=== PATIENT | female | born 1940 | race Caucasian/White ===

== ENCOUNTER 2022-12-20 06:18 | Observation (INO) | payer MEDICARE, OTHER ==
[2022-12-14 14:57] LABS: BASOPHILS % (AUTO) 0.5 % (0-1); EOSINOPHILS # (AUTO) 0.3 X10'3 (0-0.9); EOSINOPHILS % (AUTO) 3.8 % (0-6); LYMPHOCYTES # (AUTO) 2.4 X10'3 (1.1-4.8); LYMPHOCYTES % (AUTO) 28.8 % (21-51); MEAN CORPUSCULAR HGB CONC 32.7 g/dL (33.0-36.5); MEAN CORPUSCULAR VOLUME 91.9 FL (78-98); MEAN PLATELET VOLUME 8.3 FL (7.4-10.4); MONOCYTES # (AUTO) 0.7 X10'3 (0-0.9); MONOCYTES % (AUTO) 8.4 % (2-12); NEUTROPHILS # (AUTO) 4.9 X10'3 (1.8-7.7); NEUTROPHILS % (AUTO) 58.5 % (42-75); PRE OP HEMOGLOBIN 14.4 g/dL (12.0-16.0); PRE OP PLATELET COUNT 274 X10'3 (140-440); RED BLOOD COUNT 4.79 X10'6 (4.20-5.60)
[2022-12-14 15:11] LABS: ALBUMIN 4.1 G/DL (3.4-5.0); ALBUMIN/GLOBULIN RATIO 1.4 (1.1-1.5); ALKALINE PHOSPHATASE 59 IU/L (46-116); BLOOD UREA NITROGEN 28 MG/DL (7-18); BUN/CREATININE RATIO 31.1 (10.0-20.0); CALCIUM 9.7 MG/DL (8.5-10.1); CHLORIDE 105 MMOL/L (99-107); PRE OP ALT 24 U/L (30-65); PRE OP ANION GAP 6 (8-16); PRE OP AST 24 U/L (10-37); PRE OP BILIRUB, TOTAL 0.3 MG/DL (0.0-1.0); PRE OP GLUCOSE 100 MG/DL (70-104); PRE OP SODIUM 141 MMOL/L (135-145); TOTAL CARBON DIOXIDE 29.6 MMOL/L (24-32); eGFR 60 ML/MIN
[2022-12-14 15:14] LABS: PRE OP POTASSIUM 4.8 MMOL/L (3.4-5.1)
[~2022-12-20] VITALS: Ht 153.7 cm; Wt 70.8 kg
[2022-12-20] VITALS (31 sets, daily range): BP systolic 95–187; BP diastolic 53–95
[~2022-12-20 06:18] MED LIST: ASCO-139 PO; ASPI-500 PO; CALC600T61 PO; CAND16TA29 PO; CHOL50004 PO; EMPA10TA PO; FENO160T30 PO; INDOCYANINE GREEN 25 MG/10 ML VIAL IV ONE; LACT1CAP65 PO; MAGN400C PO; METH4TAB81 PO; MULT-1085 PO; PANT40TA54 PO; ZINC50TA60 PO; clindamycin-Cleocin 900mg/D5W 50 ML IV ONE; famotidine 20mg tablet PO ONE; gentamicin inj 280 MG in normal saline 100ml IV soln 93 ML IV ONE; ringers solution, lacted 1,000 ML IV SCH
[2022-12-20] MEDS ORDERED: BUPIVAcaine/PF 2.5 mg/ml (0.25%) 30ml vial ONE ×2 (06:35→10:00)
[2022-12-20] MEDS ORDERED: sugammadex 200mg/2ml injection IV ONE (08:00)
[2022-12-20] MEDS ORDERED: desflurane 240ml liquid inh. IH ONE (08:00)
[2022-12-20] MEDS ORDERED: ondansetron/PF 4mg/2ml inj ONE (08:00)
[2022-12-20] MEDS ORDERED: LIDOcaine 1% (10mg/ml) 2ml vial ONE (08:18)
[2022-12-20] MEDS ORDERED: fentaNYL/PF 50MCG/1 ML 2ML syringe ONE (08:32)
[2022-12-20] MEDS ORDERED: midazolam 1 mg/ML 2ml injection ONE (08:32)
[2022-12-20] MEDS ORDERED: glycopyrrolate 0.2mg/ml inj ONE (08:33)
[2022-12-20] MEDS ORDERED: LIDOcaine 2% (20mg/ml) 5ml vial ONE (08:33)
[2022-12-20] MEDS ORDERED: dexamethasone sod phosphate 4mg/ml inj. ONE (08:33)
[2022-12-20] MEDS ORDERED: rocuronium 10mg/ml inj IV ONE (08:33)
[2022-12-20] MEDS ORDERED: propofol inj 20 ML IV ONE (08:33)
[2022-12-20] MEDS ORDERED: neostigmine methylsulfate 1 MG/ML 10ml vial ONE (08:33)
[2022-12-20] MEDS ORDERED: hydrALAZINE 20mg/ml inj. IV PRN (09:05)
[2022-12-20] MEDS ORDERED: ringers solution, lacted 1,000 ML IV SCH (09:05)
[2022-12-20] MEDS ORDERED: morphine 4 MG/ML inj SYRINge IV PRN (09:05)
[2022-12-20] MEDS ORDERED: ondansetron/PF 4mg/2ml inj IV PRN (09:05)
[2022-12-20] MEDS ORDERED: morphine 2 MG/ML inj. syringe IV PRN (09:05)
[2022-12-20] MEDS ORDERED: labetalol 20mg/4ml (5mg/ml) syringe IV PRN (09:05)
[2022-12-20] MEDS ORDERED: fentaNYL/PF 50MCG/1 ML 2ML syringe IV PRN ×2 (09:05)
[2022-12-20] MEDS ORDERED: ePHEDrine 50MG/ML INJ. ONE (09:35)
[2022-12-20] MEDS ORDERED: labetalol 20mg/4ml (5mg/ml) syringe IV ONE (10:10)
[2022-12-20] MEDS ORDERED: naloxone 0.4 mg/ml inj IV PRN (10:15)
--- NOTE | 2022-12-20 10:20 | NUR ---
Received from OR via [facility] IN STABLE CONDITION , accompanied by Anesthesiologist and HARVEST SUPERVISOR report given by HARVEST SUPERVISOR AND Anesthesiolgist. Addendum: 12/20/22 at 1047 by Susanne Mcdonough RN Amended: Links added.
[2022-12-20] MEDS ORDERED: acetaminophen 1,000mg/100ml IV 100 ML IV STA (12:44)
[2022-12-20] MEDS: HYDROmorphone inj. 0.5 MG/0.5 ML DISP.SYRIN IV PRN ×2 (12:53→21:22)
[2022-12-20] MEDS: oxyCODONE/APAP 5-325mg tablet PO PRN ×2 (12:54→18:40)
--- NOTE | 2022-12-20 14:08 | NUR ---
PATIENT DISCHARGED FROM PACU IN STBLE CONDITION AFTER REPORT GIVEN TO RN TAKING OVER PATIENTS CARE. PATIENT TRANSFERRED TO ROOM 4012B VIA [facility] LASSITER RN. Addendum: 12/20/22 at 1410 by Susanne Mcdonough RN Amended: Links added.
[2022-12-20] MEDS: potassium CL 20mEq in D5-1/2NS 1,000 ML IV SCH ×2 (15:33→18:15)
[2022-12-20] MEDS: clindamycin 600mg/D5W 50ml 50 ML IV SCH (17:01)
--- NOTE | 2022-12-20 19:55 | NUR ---
found order for [address] on patient. pt up with aide to walk, fww, attends b/c incont urine when first stood up.
[2022-12-20] MEDS ORDERED: pantoprazole 40mg Tablet.DR PO SCH (21:06)
[2022-12-20] MEDS: pantoprazole 40mg Tablet.DR PO SCH (21:22)
[2022-12-21] MEDS: oxyCODONE/APAP 5-325mg tablet PO PRN ×3 (01:09→12:07)
[2022-12-21] MEDS: clindamycin 600mg/D5W 50ml 50 ML IV SCH ×2 (01:12→08:10)
[2022-12-21 01:30] VITALS: BP 124/52
[2022-12-21] MEDS: potassium CL 20mEq in D5-1/2NS 1,000 ML IV SCH ×2 (02:15→10:15)
--- NOTE | 2022-12-21 03:30 | NUR ---
engineering came to look at room temperature. patient was sleeping and they were unable to fix without waking up patient.
--- NOTE | 2022-12-21 05:43 | NUR ---
engineering here to look at heater.
[2022-12-21 06:00] VITALS: BP 132/49
--- NOTE | 2022-12-21 06:07 | NUR ---
reported to days. noted pt anticiaptes going home today
[2022-12-21] MEDS ORDERED: losartan 50mg tablet PO SCH (08:00)
[2022-12-21] MEDS: pantoprazole 40mg Tablet.DR PO SCH (08:09)
[2022-12-21 10:00] VITALS: BP 131/59
--- NOTE | 2022-12-21 15:09 | NUR ---
Patient discharged in stable condition to home with friend. iv removed tip intact no complications. belongings sent with pt. pt educated on dishcarge instructions and follow up.
== END 2022-12-21 15:09 | disposition home or self-care (01) ==
LOC: PAS 06:18 → ORTHO 4S 10:20 → INTOOBSV 10:20
PROVIDERS: ADMIT Surgery; ATTEND Surgery
DX: K80.20 Calculus of gallbladder without cholecystitis without obstruction (principal); K66.0 Peritoneal adhesions (postprocedural) (postinfection); E11.9 Type 2 diabetes mellitus without complications; K21.9 Gastro-esophageal reflux disease without esophagitis; I10 Essential (primary) hypertension; E78.5 Hyperlipidemia, unspecified; Z85.3 Personal history of malignant neoplasm of breast; Z79.899 Other long term (current) drug therapy
CPT/HCPCS: 36415; 47562; 71046; 80053; 82948; 85025; 86885; 86900; 86901; 93005; 96365; 96366; 96375; 96376; G0378; J0131; J1100; J1170; J1580; J2250; J2405; J2704; J2710; J3010; J3490; J7120; 88304; A4215; A4618; A7000

== ENCOUNTER 2023-11-04 14:48 | Emergency (ER) | payer MEDICARE, OTHER ==
[~2023-11-04] VITALS: Ht 154.9 cm; Wt 72.7 kg
[~2023-11-04 14:48] MED LIST changes: -INDOCYANINE GREEN 25 MG/10 ML VIAL IV ONE; -clindamycin-Cleocin 900mg/D5W 50 ML IV ONE; -famotidine 20mg tablet PO ONE; -gentamicin inj 280 MG in normal saline 100ml IV soln 93 ML IV ONE; -ringers solution, lacted 1,000 ML IV SCH
[2023-11-04 15:51] VITALS: BP 170/82; PULSE 86; RESP 17; TEMP 97.9; O2SAT 97
[2023-11-04] MEDS ORDERED: ALBU8HFA INH (17:03)
[2023-11-04] MEDS ORDERED: PROM118S5 PO (17:03)
== END 2023-11-04 17:12 | disposition home or self-care (01) ==
LOC: ER 14:49
DX: J06.9 Acute upper respiratory infection, unspecified (principal); Z20.822 Contact with and (suspected) exposure to COVID-19; Z91.040 Latex allergy status; Z88.0 Allergy status to penicillin; Z88.2 Allergy status to sulfonamides; Z88.8 Allergy status to other drugs, medicaments and biological substances; Z91.048 Other nonmedicinal substance allergy status
CPT/HCPCS: 36415; 71045; 87502; 87503; 87811; 99284